=== PATIENT | female | born 1995 | race African-American/Black ===

== ENCOUNTER 2019-03-11 19:30 | Emergency (ER) | payer SELFPAY ==
[~2019-03-11] VITALS: Ht 167.6 cm; Wt 102.0 kg
[2019-03-12] MEDS ORDERED: ONDANSETRON HCL 4MG/2ML INJ IV STA (01:17)
[2019-03-12] MEDS ORDERED: KETOROLAC 30MG/ML VIAL IV STA (01:17)
[2019-03-12] MEDS ORDERED: SODIUM CHLORIDE 0.9% 1,000 ML IV ONE (01:17)
[2019-03-12] MEDS ORDERED: FAMOTIDINE 20MG/2ML VIAL IV ONE (01:30)
[2019-03-12 01:34] LABS: BASOPHILS % 0.6 % (0.0-2.0); HEMATOCRIT. 37.9 % (36.0-48.0); HEMOGLOBIN. 12.4 g/dL (12.0-16.0); LYMPHOCYTES % 17.8 % (20.0-50.0); MEAN CORPUSCULAR HEMOGLOBIN 30.3 pg (28.0-32.0); MEAN CORPUSCULAR VOLUME 92.6 fL (81.0-99.0); MEAN PLATELET VOLUME 10.8 fl (7.4-10.4); MONOCYTES % 4.6 % (2.0-8.0); PLATELET 209 x1000/uL (130-400); RED CELL DISTRIBUTION WIDTH 15.1 % (11.6-14.6)
[2019-03-12 01:40] LABS: CHLORIDE 104 mEq/L (98-107)
[2019-03-12 01:52] LABS: CLARITY URINE CLOUDY (CLEAR); COLOR URINE DARK YELLOW (YELLOW); KETONES URINE 2+ (NEGATIVE); LEUKOCYTE ESTERASE URINE TRACE (NEGATIVE); NITRITE URINE NEGATIVE (NEGATIVE); OCCULT BLOOD URINE NEGATIVE (NEGATIVE); PH URINE 5.5 (4.5-8.0); PROTEIN URINE 1+ (NEGATIVE); SPECIFIC GRAVITY URINE 1.035 (1.005-1.030)
[2019-03-12] MEDS ORDERED: NITROFURANTOIN 100MG M/M CAPSULE PO ONE (04:30)
[2019-03-12 06:17] VITALS: BP 104/57
== END 2019-03-12 06:34 | disposition home or self-care (01) ==
LOC: ER 20:18
DX: O23.41 Unspecified infection of urinary tract in pregnancy, first trimester (principal); Z3A.01 Less than 8 weeks gestation of pregnancy
CPT/HCPCS: 36415; 76705; 76801; 76817; 80053; 81003; 83690; 84702; 85025; 93005; 96361; 96374; 96375; 99284; J2405; J3490; J7030